=== PATIENT | male | born 2000 | race Caucasian/White ===

== ENCOUNTER → 2020-01-28 | Outpatient (CLI) | payer BC ==
[~2020-01-28] MED LIST: ATARAX 10MG10 MG/TAB PO; NO HOME MEDICATIONS; WELLBUTRIN XL150 MG PO
[2020-01-28 14:17] VITALS: BP 136/65; PULSE 74; TEMP 98.3
== END ==
LOC: COL.ER 14:05
DX: Z48.02 Encounter for removal of sutures (principal)

== ENCOUNTER 2020-06-23 19:23 | Emergency (ER) | payer BC ==
[~2020-06-23] VITALS: Ht 185.4 cm; Wt 70.5 kg
[2020-06-23 20:19] VITALS: BP 118/64; PULSE 74; TEMP 98.1
== END 2020-06-23 20:21 | disposition home or self-care (01) ==
LOC: COL.ER 19:23
DX: S61.411A Laceration without foreign body of right hand, initial encounter (principal); F32.9 Major depressive disorder, single episode, unspecified; F41.9 Anxiety disorder, unspecified; W26.0XXA Contact with knife, initial encounter; Y92.090 Kitchen in other non-institutional residence as the place of occurrence of the external cause

== ENCOUNTER → 2020-07-03 | Outpatient (CLI) | payer BC ==
[2020-07-03 14:29] VITALS: BP 128/78; PULSE 76
== END ==
LOC: COL.ER 14:12
DX: Z48.02 Encounter for removal of sutures (principal)

== ENCOUNTER → 2021-11-23 | Outpatient (CLI) | payer BC | LOC: COL.RAD 15:23 | DX: N50.811 Right testicular pain (principal) ==